=== PATIENT | male | born 1960 | race Caucasian/White ===

== ENCOUNTER 2017-08-26 12:20 | Emergency (ER) | payer BC ==
[2017-08-26 12:39] VITALS: TEMP 98.9; BMI 29.0
--- NOTE | 2017-08-26 15:16 | PDOC ---
History of Present Illness - General Chief Complaint: Abscess Boil Stated Complaint: LEFT AXILL ABSCESS Time Seen by Provider: 08/26/17 12:47 - History of Present Illness Initial Comments: 08/26/17 14:10 57 yo M with h/o hiddratentis suppuritiva and recurrent abscesses who presents with left axilla abscess. Patient reports development of left armpit abscess of past week. Pain described as burning and dull type pressure sensation that is aggravated with pressure and no identifiable alleviators. Has not noticed active weeping or drainage. Denies other abscesses in adjacent tissues or or other body abscesses. Denies fevers/chills, N/V, SOB, cough, lightheadedness, dizziness, urinary complaints, abdominal complaints. Has not attempted OTC topical treatment. Past History - Past Medical History Allergies/Adverse Reactions: Allergies Allergy/AdvReac Type Severity Reaction Status Date / Time No Known Allergies Allergy Verified 08/26/17 12:26 Home Medications: Ambulatory Orders Levofloxacin [Levaquin -] 500 mg PO DAILY #5 tablet 04/11/16 Clindamycin [Cleocin -] 300 mg PO BID 7 Days #14 capsule MDD 2 Tab 08/26/17 COPD: No Diabetes: Yes Disorders: Yes (BPH) HTN: Yes Hypercholesterolemia: Yes - Surgical History Abdominal Surgery: No Cardiac Surgery: No Cholecystectomy: No - Suicide/Smoking/Psychosocial Hx Smoking History: Current every day smoker Have you smoked in the past 12 months: Yes Number of Cigarettes Smoked Daily: 40 Information on smoking cessation initiated: Yes 'Breaking Loose' booklet given: 04/10/16 Hx Alcohol Use: No Drug/Substance Use Hx: No Substance Use Type: None Review of Systems - Review of Systems Comments:: 08/26/17 14:11 GENERAL/CONSTITUTIONAL: No fever or chills. No weakness. HEAD, EYES, EARS, NOSE AND THROAT: No change in vision. No ear pain or discharge. No sore throat.- CARDIOVASCULAR: No chest pain or shortness of breath RESPIRATORY: No cough, wheezing, or hemoptysis. GASTROINTESTINAL: No nausea, vomiting, diarrhea or constipation. GENITOURINARY: No dysuria, frequency, or change in urination. MUSCULOSKELETAL: No joint or muscle swelling or pain. No neck or back pain. SKIN: + L armpit abscess. No rash NEUROLOGIC: No headache, vertigo, loss of consciousness, or change in strength/ sensation. ENDOCRINE: No increased thirst. No abnormal weight change HEMATOLOGIC/LYMPHATIC: No anemia, easy bleeding, or history of blood clots. ALLERGIC/IMMUNOLOGIC: No hives or skin allergy. *Physical Exam - Vital Signs Last Vital Signs Temp Pulse Resp BP Pulse Ox 98.9 F 71 18 175/92 99 08/26/17 12:21 08/26/17 12:21 08/26/17 12:21 08/26/17 12:21 08/26/17 12:21 - Physical Exam Comments: 08/26/17 14:11 GENERAL: Awake, alert, and fully oriented, in no acute distress HEAD: No signs of trauma, normocephalic, atraumatic EYES: PERRLA, EOMI, sclera anicteric, conjunctiva clear ENT:, hearing grossly normal, nares patent, oropharynx clear without exudates. Moist mucosa NECK: Normal ROM, supple, no JVD, or masses LUNGS: No distress, speaks full sentences, clear to auscultation bilaterally HEART: Regular rate and rhythm, normal S1 and S2, no murmurs, rubs or gallops, peripheral pulses normal and equal bilaterally. EXTREMITIES : Normal inspection, Normal range of motion, no edema. No clubbing or cyanosis. SKIN: Warm, Dry, normal turgor, no rashes or lesions noted. Left Axilla: Left axilla abscess measuring 3x 4 cm. Lesion is ttp, warm, and indurated. Absent weeping, bleeding. Absent streaking. Central puncutm. Absent surrounding cellulits. Absent lymphadenopthy. Procedures - Incision and Drainage I&D Site: Left: Axilla Betadine cleansed: Yes Anesthesia: 1% Lidocaine w/ Epi Volume(ml): 20 Attempts: 1 Iodinated Packin/4 in Complications: none Dressing: Yes Medical Decision Making - Medical Decision Making 08/26/17 15:52 57 yo M with h/o hidratenitis suppuritiva and recurrent abscesses who presents with left axilla abscess. No systemic s/s of infection. Hemoydnamically stable. Left axilla reveals indurated, non fluctuant, firm abscess measuring 3x 4 cm with central punctum and absent weeping, bleeding, or streaking. There is no surrounding cellulits or lymphadenopthy. Will continue with incision and drainage. ED Course: Incision and drainage performed w/out complication. Pus drained and packed with 1/4 iodinated packing. and dressed. 08/26/17 15:55 Patient understands he is supposed to return for packing removal and wound check. Instructed him to take Clindamycin 300 mg BID 7 days and advised to f/u with PCP. He is stable for D/c. *DC/Admit/Observation/Transfer Diagnosis at time of Disposition: Hidradenitis suppurativa, Abscess - Discharge Dispostion Disposition: HOME Condition at time of disposition: Stable Admit: No - Prescriptions Prescriptions: Clindamycin [Cleocin -] 300 mg PO BID 7 Days #14 capsule MDD 2 Tab - Referrals - Patient Instructions Printed Discharge Instructions: DI for Wound Infection, Smoking Cessation Additional Instructions: Please return to the emergency department if you have any new or worsening symptoms or concerns. Please follow up with your primary care physician within the next 1 week. Please take Clindamycin two times a day for 7 days. Please follow up in emergency room 7-10 days for packing removal/wound check. Print Language: PASHTO - Post Discharge Activity - Attestations Physician Attestion: 08/26/17 15:18 I attest to the information provided in this note.
[2017-08-26 15:56] VITALS: BP 140/84; PULSE 70
== END 2017-08-26 15:49 | disposition home or self-care (01) ==
LOC: FER 12:20
PROC: 0H9CXZZ Drainage of Left Upper Arm Skin, External Approach (ICD-10-PCS; principal; 2017-08-26)
DX: L02.412 Cutaneous abscess of left axilla (principal); L73.2 Hidradenitis suppurativa
CPT/HCPCS: 87070; 87186; 87205; 99283-25